=== PATIENT | female | born 1970 | race Two or more races ===

== ENCOUNTER 2019-08-04 15:56 | Outpatient (CLI) | payer OTHER | END 2019-08-04 23:59 | disposition home or self-care (01) | LOC: CFH 15:56 | PROVIDERS: ATTEND Family Medicine | DX: Z12.31 Encounter for screening mammogram for malignant neoplasm of breast (principal); E04.9 Nontoxic goiter, unspecified; E04.1 Nontoxic single thyroid nodule | CPT/HCPCS: 76536; 77067 ==

== ENCOUNTER 2019-12-29 20:22 | Observation (INO) | payer OTHER ==
[~2019-12-29] VITALS: Ht 154.9 cm; Wt 52.3 kg
[2019-12-29] MEDS ORDERED: SODIUM CHLORIDE 0.9% 1,000 ML IV ONE (20:36)
[2019-12-29] MEDS ORDERED: ONDANSETRON 2MG/ML, 2ML ONE (20:40)
[2019-12-29] MEDS ORDERED: MORPHINE SULFATE 4 MG/ML, 1ML ONE (20:40)
--- NOTE | 2019-12-29 20:53 | NUR ---
IV SITE STARTED, LABS DRAWN, IV FLUIDS INFUSING. PT MEDICATED PER MAR, MONITORS APPLIED, SIDERAILS UP X2, CALL LIGHT WITHIN REACH. AWAITING LAB RESULTS AND ULTRASOUND
[2019-12-29] MEDS ORDERED: SODIUM CHLORIDE FLUSH 10ML SYR IVF ONE (21:00)
[2019-12-29] MEDS ORDERED: MORPHINE SULFATE 4 MG/ML, 1ML IVPush PRN (21:00)
[2019-12-29] MEDS ORDERED: ONDANSETRON 2MG/ML, 2ML IVPush ONE (21:00)
[2019-12-29 21:09] LABS: MEAN CORPUSCULAR HEMOGLOBIN 29.6 pg (27.0-34.8); MEAN CORPUSCULAR HGB CONC 32.8 g/dL (32.4-35.8); MEAN CORPUSCULAR VOLUME 90.4 fL (80-100); MEAN PLATELET VOLUME 8.2 fL (7.4-10.4); PLATELET COUNT 317 x10^3/uL (130-400); RED BLOOD COUNT 5.19 x10^6/uL (3.82-5.3); RED CELL DISTRIBUTION WIDTH 12.9 % (9.6-15.2)
[2019-12-29 21:10] LABS: ANION GAP 8 mmol/L (5-15); CALCIUM 9.5 mg/dL (8.5-10.1); CHLORIDE 103 mmol/L (98-107)
[2019-12-29 21:11] LABS: ALANINE AMINOTRANSFERASE 21 U/L (12-78); ALBUMIN 4.1 g/dL (3.4-5.0)
[2019-12-29 21:13] LABS: ALKALINE PHOSPHATASE 92 U/L (45-117); BILIRUBIN,TOTAL 0.5 mg/dL (0.2-1.0); TOTAL PROTEIN 8.1 g/dL (6.4-8.2)
[2019-12-29 21:31] LABS: MD YES
[2019-12-29 21:34] LABS: <PLATELET ESTIMATE> ADEQUATE; <PLT MORPHOLOGY> NORMAL PLT MORPH; <RBC MORPHOLOGY> NORMAL; EOS#(MANUAL) 1.82 x10^3/uL (0.0-0.4); EOS% (MANUAL) 13 % (1-7); LYMPH#(MANUAL) 2.94 x10^3/uL (1-3.4); LYMPHS% (MANUAL) 21 % (22-44); MONOS% (MANUAL) 5 % (2-9); REACTIVE LYMPHS # (MANUAL) 0.28 x10^3/uL (0-0); REACTIVE LYMPHS % (MANUAL) 2 % (0-0); SEG#(MANUAL) 8.26 x10^3/uL (1.8-6.8); SEGS% (MANUAL) 59 % (42-75)
[2019-12-29] MEDS ORDERED: MAALOX/HYOSCYAMINE/LIDOCAINE 45 ML BTL PO ONE (22:00)
[2019-12-29] MEDS ORDERED: MAALOX/HYOSCYAMINE/LIDOCAINE 45 ML BTL ONE (22:03)
--- NOTE | 2019-12-29 22:07 | NUR ---
PT RESTING ON LUIS, LUCY, MONITORS IN PLACE, MEDICATED PER DEC. AWAITING CT
[2019-12-29] MEDS ORDERED: OMNIPAQUE 350 MG/ML, 100ML BOTTLE ONE (22:25)
--- NOTE | 2019-12-29 22:53 | NUR ---
Gen Surg paged.
--- NOTE | 2019-12-29 23:04 | NUR ---
PT RESTING CALMLY, DENIES NEEDS, CALL LIGHT WITHIN REACH.
[2019-12-29 23:50] VITALS: BP 120/72
[2019-12-30] MEDS ORDERED: ALUMINUM/MAG/SIMETHICONE 30 ML UDC PO PRN
[2019-12-30] MEDS ORDERED: ACETAMINOPHEN 325 MG TABLET PO PRN
[2019-12-30] MEDS ORDERED: ONDANSETRON 2MG/ML, 2ML IVPush PRN
[2019-12-30] MEDS ORDERED: hydrALAzine 20 MG/ML, 1ML IVPush PRN
[2019-12-30] MEDS ORDERED: LIDODERM 5% PATCH TD PRN
[2019-12-30] MEDS ORDERED: TEMAZEPAM 15 MG CAPSULE PO PRN
[2019-12-30 05:48] LABS: ANION GAP 5 mmol/L (5-15); CALCIUM 8.7 mg/dL (8.5-10.1); CHLORIDE 109 mmol/L (98-107); CREATININE 0.76 mg/dL (0.55-1.02)
[2019-12-30 05:54] LABS: MEAN CORPUSCULAR HEMOGLOBIN 29.9 pg (27.0-34.8); MEAN CORPUSCULAR VOLUME 90.6 fL (80-100); MEAN PLATELET VOLUME 8.1 fL (7.4-10.4); PLATELET COUNT 281 x10^3/uL (130-400); RED BLOOD COUNT 4.52 x10^6/uL (3.82-5.3); RED CELL DISTRIBUTION WIDTH 12.5 % (9.6-15.2)
[2019-12-30 06:36] LABS: MD YES
[2019-12-30 06:42] LABS: BAND#(MANUAL) 0.37 x10^3/uL; BANDS%(MANUAL) 3 % (0-7); BASOS#(MANUAL) 0.12 x10^3/uL (0-0.1); BASOS% (MANUAL) 1 % (0-1); EOS#(MANUAL) 1.95 x10^3/uL (0.0-0.4); EOS% (MANUAL) 16 % (1-7); LYMPH#(MANUAL) 3.17 x10^3/uL (1-3.4); LYMPHS% (MANUAL) 26 % (22-44); MONOS#(MANUAL) 0.49 x10^3/uL (0.3-2.7); MONOS% (MANUAL) 4 % (2-9); SEGS% (MANUAL) 50 % (42-75)
[2019-12-30 06:43] LABS: <PLATELET ESTIMATE> ADEQUATE; <PLT MORPHOLOGY> NORMAL PLT MORPH; <RBC MORPHOLOGY> NORMAL
[2019-12-30] MEDS ORDERED: PANTOPRAZOLE 40 MG IV IVPush SCH (07:30)
[2019-12-30 07:48] VITALS: BP 90/63
[2019-12-30 13:20] VITALS: BP 95/63
== END 2019-12-30 13:40 | disposition home or self-care (01) ==
LOC: ED 22:36 → INTOOBSV 23:37 → EDIP 23:37 → 4NE 23:48
PROVIDERS: ADMIT Family Medicine; ATTEND Family Medicine
DX: K56.1 Intussusception (principal); E78.5 Hyperlipidemia, unspecified; D25.9 Leiomyoma of uterus, unspecified; E11.9 Type 2 diabetes mellitus without complications; D72.1 Eosinophilia; R19.7 Diarrhea, unspecified; Z79.899 Other long term (current) drug therapy
CPT/HCPCS: 36415; 74021; 74177; 76700; 80048; 80053; 83690; 85025; 96361; 96374; 96375; 99285; C9113; G0378; J2270; J2405; J7030; Q9967